=== PATIENT | female | born 1965 | race Hispanic/Latino ===

== ENCOUNTER 2017-06-12 07:37 | Outpatient (CLI) | payer BC ==
--- NOTE | 2017-06-12 09:11 | XRay Report ---
Left knee: Pain. There is narrowing of the medial joint compartment with periarticular spurring. The articular surfaces appear smooth. In the AP standing projection the femur appears to be slightly subluxed medial to the tibial plateau. The bones are well-mineralized. There is no swelling and no joint effusion. Impression: Degenerative medial compartment changes.
== END 2017-06-12 07:38 | disposition home or self-care (01) ==
LOC: SPVIMAG 07:37
PROVIDERS: ATTEND Orthopaedic Surgery
DX: M17.12 Unilateral primary osteoarthritis, left knee (principal)